=== PATIENT | female | born 1950 | race Caucasian/White ===

== ENCOUNTER 2024-06-01 19:34 | Emergency (ER) | payer OTHER, MEDICARE ==
[~2024-06-01] VITALS: Ht 154.9 cm; Wt 90.0 kg
[2024-06-01 19:36] VITALS: BP 172/64; PULSE 62; RESP 18; TEMP 36.9; O2SAT 99
[2024-06-01] MEDS: SODIUM CHLORIDE 0.9% 1,000 ML IV ONE (20:59)
[2024-06-01 21:26] LABS: BASOPHILS % 0.3 % (0.0-2.0); HEMATOCRIT. 30.8 % (36.0-48.0); HEMOGLOBIN. 10.2 g/dL (12.0-16.0); LYMPHOCYTES % 7.6 % (20.0-50.0); MEAN CORPUSCULAR HEMOGLOBIN 31.5 pg (28.0-32.0); MEAN CORPUSCULAR HGB CONC 33.2 g/dL (31.0-37.0); MEAN CORPUSCULAR VOLUME 94.9 fL (81.0-99.0); MEAN PLATELET VOLUME 7.4 fl (7.4-10.4); MONOCYTES % 4.3 % (2.0-8.0); NEUTROPHILS % 87.8 % (40.0-76.0); PLATELET 474 x1000/uL (130-400); RED BLOOD CELL COUNT 3.24 mill/uL (4.2-5.4); RED CELL DISTRIBUTION WIDTH 17.3 % (11.6-14.6); WHITE BLOOD COUNT 10.1 x1000/uL (4.5-11.0)
[2024-06-01 21:33] LABS: CARBON DIOXIDE 28 mEq/L (21-32); CHLORIDE 98 mEq/L (98-107); SODIUM 132 mEq/L (136-145)
[2024-06-01 21:34] LABS: CALCIUM 8.5 mg/dL (8.7-10.4)
[2024-06-01 21:37] LABS: INR 0.9; PROTHROMBIN TIME 10.3 sec (9.6-11.0)
[2024-06-01 21:38] LABS: CREATININE 0.7 mg/dL (0.6-1.0)
[2024-06-01 21:39] LABS: GLUCOSE 328 mg/dL (70-105); UREA NITROGEN BLOOD 18 mg/dL (9-23)
[2024-06-01] MEDS ORDERED: INSULIN LISPRO 100 UNITS/ML SUBCUT STA (22:44)
[2024-06-01] MEDS ORDERED: DEXTROSE 50% WATER 50ML SYRINGE IV PRN (22:45)
[2024-06-01] MEDS ORDERED: AZIT250T12 MT (22:53)
[2024-06-01] MEDS ORDERED: AMOX1TAB16 MT (22:53)
[2024-06-01] MEDS ORDERED: CYCL10TA21 MT (23:03)
[2024-06-01] MEDS ORDERED: KETOROLAC 30MG/ML VIAL IM ONE (23:45)
[2024-06-01] MEDS ORDERED: CYCLOBENZAPRINE 10MG TABLET PO ONE (23:45)
[2024-06-02] MEDS ORDERED: INSULIN LISPRO 100 UNITS/ML SUBCUT STA (00:15)
[2024-06-02] MEDS ORDERED: CYCLOBENZAPRINE 10MG TABLET PO NR (00:30)
[2024-06-02] MEDS ORDERED: KETOROLAC 30MG/ML VIAL IM NR (00:30)
[2024-06-02] MEDS ORDERED: BLOOD SUGAR DIAGNOSTIC STRIP TEST SCH (09:00)
== END 2024-06-02 01:41 | disposition home or self-care (01) ==
LOC: ER 19:34
DX: E11.65 Type 2 diabetes mellitus with hyperglycemia (principal); J18.9 Pneumonia, unspecified organism; E87.8 Other disorders of electrolyte and fluid balance, not elsewhere classified; I10 Essential (primary) hypertension
CPT/HCPCS: 99284; 71045; 80048; 82962; 85025; 85610; 36415; J7030